=== PATIENT | male | born 1955 | race Caucasian/White ===

== ENCOUNTER 2018-06-30 04:59 | Emergency (ER) | payer OTHER ==
[2018-06-30] MEDS ORDERED: Sodium Chloride 0.9% 10 ML Syringe FLUSH PRN (05:20)
[2018-06-30 06:23] LABS: CHLORIDE,CL 101 mmol/L (98-107); SODIUM,NA 138 mmol/L (136-145)
[2018-06-30 06:24] LABS: ANION GAP 14.2 mmol/L (10-20)
[2018-06-30] MEDS: Insulin Regular, Human 100 Units/ML 3 ML Vial IVPUSH ONE (06:45)
[2018-06-30] MEDS: Heparin Sodium 5,000 Units/ML Vial IVPUSH ONE (06:54)
[2018-06-30] MEDS: Heparin Sodium/0.45% NaCl 25,000 UNITS/500 ML BAG IV SCH (06:54)
--- NOTE | 2018-06-30 06:55 | EDM.PDOC ---
ED HPI GENERAL MEDICAL PROBLEM - General Chief Complaint: Cardiovascular Problem Stated Complaint: Chest Pain Time Seen by Provider: 06/30/18 05:14 Source of Information: Reports: Patient History Limitations: Reports: No Limitations - History of Present Illness INITIAL COMMENTS - FREE TEXT/NARRATIVE: Pt. presents to ER with complaints of substernal chest and anterior neck pain. He states that he has been experiencing intermittent chest pain for some time, particularly if he is outside exerting himself. He states that he has noticed that the discomfort will occasionally resolve if he drinks a warm drink. He states that the pain today is located in his upper chest and radiates into this anterior neck. He states that the radiation into the neck is a new symptom. Denies any fever or chills. No radiation into the back or jaw. He also complains of some paresthesia in his L upper extremity, primarily in the hand. He has had headaches recently as well. Denies any weakness to the arm or hand. He is not currently experiencing any symptoms of extremity paresthesia actively. Denies any involvement of the lower extremities. No facial droop, dysarthria, speech or gait disturbances. He states that he has had "black stools" and does have a history of GERD. Denies any hematemesis. No hematochezia. He states that he is a daily drinker, but typically only has 1-2 drinks. Pt. has a history of CAD with previous [facility]. He has 2 stents. Denies any history of CHF. He states that he has "borderline" diabetes that he manages with exercise and diet. He does not regularly check his blood sugar. He states that his PCP is Dr. Eddie Alvarenga and [facility]. Pt. states that the discomfort woke him from sleep at approx. 0300. Onset: Today Location: Reports: Neck, Chest Quality: Reports: Ache, Pressure Severity: Moderate Treatments PLOW HOLDER: Reports: Nitroglycerin - Related Data Allergies Allergy/AdvReac Type Severity Reaction Status Date / Time dust Allergy Headache Uncoded 06/30/18 05:11 Home Meds: Home Meds Aspirin 81 mg PO BRK 05/20/16 [History] Lisinopril [Prinivil] 5 mg PO DAILY 05/20/16 [History] Metoprolol Tartrate 12.5 mg PO DAILY 05/20/16 [History] Multivitamin [Multivitamins] 1 each PO DAILY 05/20/16 [History] atorvaSTATin [Lipitor] 80 mg PO BEDTIME 05/20/16 [History] cephALEXin [Cephalexin] 500 mg PO TID #30 capsule 05/20/16 [Rx] Past Medical History Cardiovascular History: Reports: Hypertension, [place] Gastrointestinal History: Reports: GERD Endocrine/Metabolic History: Reports: Diabetes, Type II Social & Family History - Tobacco Use Smoking Status *Q: Former Smoker Used Tobacco, but Quit: Yes Month/Year Tobacco Last Used: 1991 - Recreational Drug Use Recreational Drug Use: No ED ROS GENERAL - Review of Systems Review Of Systems: See Below Constitutional: Reports: No Symptoms HEENT: Reports: No Symptoms Respiratory: Reports: No Symptoms Cardiovascular: Reports: Chest Pain Endocrine: Reports: No Symptoms GI/Abdominal: Reports: Other (please see HPI) : Reports: Other (Please see HPI) Musculoskeletal: Reports: Neck Pain Skin: Reports: No Symptoms Neurological: Reports: Paresthesia (L hand) Psychiatric: Reports: No Symptoms Hematologic/Lymphatic: Reports: No Symptoms Immunologic: Reports: No Symptoms ED EXAM, GENERAL - Physical Exam Exam: See Below Exam Limited By: No Limitations General Appearance: Alert, WD/WN, No Apparent Distress Eye Exam: Bilateral Eye: EOMI Nose: Normal Inspection, Normal Mucosa, No Blood Throat/Mouth: Normal Inspection, Normal Lips, Normal Teeth, Normal Gums, Normal Oropharynx, Normal Voice, No Airway Compromise Head: Atraumatic, Normocephalic Neck: Normal Inspection, Supple, Non-Tender, Full Range of Motion Respiratory/Chest: No Respiratory Distress, Lungs Clear, Normal Breath Sounds, No Accessory Muscle Use, Chest Non-Tender Cardiovascular: Normal Peripheral Pulses, Regular Rate, Rhythm, No Edema, No Gallop, No JVD, No Murmur, No Rub Peripheral Pulses: 4+: Radial (L), Radial (R), Posterior Tibial (L), Posterior Tibial (R) GI/Abdominal: Normal Bowel Sounds, Soft, Non-Tender, No Organomegaly, No Distention, No Mass (Male) Exam: Deferred Rectal (Males) Exam: Heme - Stool, Other (FOBT was performed and was negative. ) Back Exam: Normal Inspection, Full Range of Motion Extremities: Normal Inspection, Normal Range of Motion, Non-Tender, No Pedal Edema, Normal Capillary Refill Neurological: Alert, Oriented, CN II-XII Intact, Normal Cognition, Normal Gait, Normal Reflexes, No Motor/Sensory Deficits Psychiatric: Normal Affect, Normal Mood Skin Exam: Warm, Dry, Intact, Normal Color, No Rash Lymphatic: No Adenopathy EKG INTERPRETATION EKG Interpretation Comments: sinus bradycardia with PVCs. No acute ST abnormality. Course - Vital Signs Last Recorded V/S: Last Vital Signs Temp 36.0 C 06/30/18 05:25 Pulse 65 06/30/18 06:30 Resp 16 06/30/18 06:30 BP 111/74 06/30/18 06:30 Pulse Ox 95 06/30/18 06:30 - Orders/Labs/Meds Orders: Active Orders 24 hr Category Date Time Status EKG Documentation Completion [RC] STAT Care 06/30/18 05:19 Active Chest 1V Frontal [CR] Stat Exams 06/30/18 05:21 Taken UA W/MICROSCOPIC [URIN] Stat Lab 06/30/18 06:43 Ordered Heparin Sodium/0.45% NaCl [Heparin 25,000 Units in 1/2 Med 06/30/18 06:45 Ordered NS 500 ML] 25,000 units in 500 ml IV TITRATE Sodium Chloride 0.9% [Saline Flush] Med 06/30/18 05:20 Active 10 ml FLUSH ASDIRECTED PRN Peripheral IV Insertion Adult [OM.PC] Routine Oth 06/30/18 05:21 Ordered Medication Orders Heparin Sodium/Sodium Chloride (Heparin 25,000 Units In 1/2 Ns 500 Ml) 25,000 units in 500 mls @ 20 mls/hr IV TITRATE LIZETH; Protocol Sodium Chloride (Saline Flush) 10 ml FLUSH ASDIRECTED PRN PRN Reason: Keep Vein Open Labs: Laboratory Tests 06/30/18 06/30/18 06/30/18 Range/Units 05:35 05:35 05:35 WBC 8.7 (4.0-10.0) x10^3/uL RBC 5.03 (4.5-6.0) x10^6/uL Hgb 15.8 (14.0-18.0) g/dL Hct 45.4 (40.0-52.0) % MCV 90.3 (78.0-93.0) fL MCH 31.4 (26.0-32.0) pg MCHC 34.8 (32.0-36.0) g/dL RDW Coeff of Nikhil 13.4 (10.0-15.0) % Plt Count 213 (130-400) x10^3/uL Neut % (Auto) 56.5 (50.0-80.0) % Lymph % (Auto) 33.1 (25.0-50.0) % Bibb % (Auto) 8.7 (2.0-11.0) % Eos % (Auto) 1.1 (0.0-4.0) % Baso % (Auto) 0.6 (0.2-1.2) % PT 11.6 H (9.6-11.4) SEC INR 1.1 L (2.0-3.5) Sodium 138 (136-145) mmol/L Potassium 4.2 (3.5-5.1) mmol/L Chloride 101 (98-107) mmol/L Carbon Dioxide 27 (21-32) mmol/L Anion Gap 14.2 (10-20) mmol/L BUN 16 (7-18) mg/dL Creatinine 1.0 (0.70-1.30) mg/dL Est Cr Clr Drug Dosing 77.06 mL/min Estimated GFR (MDRD) > 60 Glucose 348 H (74-106) mg/dL Calcium 9.1 (8.5-10.1) mg/dL Corrected Calcium 9.58 (8.5-10.1) mg/dL Phosphorus 3.5 (2.6-4.7) mg/dL Magnesium 1.8 (1.8-2.4) mg/dL Total Bilirubin 0.8 (0.2-1.0) mg/dL AST 20 (15-37) U/L ALT 55 (16-63) U/L Alkaline Phosphatase 134 H (46-116) U/L POC Troponin I (0.00-0.08) ng/mL C-Reactive Protein 0.4 (<=0.9) mg/dL NT-Pro-B Natriuret Pep 89 (<=125) pg/mL Total Protein 7.7 (6.4-8.2) g/dL Albumin 3.4 (3.4-5.0) g/dL Globulin 4.3 Albumin/Globulin Ratio 0.79 TSH, Ultra Sensitive 1.961 (0.358-3.74) uIU/mL 06/30/18 Range/Units 05:42 WBC (4.0-10.0) x10^3/uL RBC (4.5-6.0) x10^6/uL Hgb (14.0-18.0) g/dL Hct (40.0-52.0) % MCV (78.0-93.0) fL MCH (26.0-32.0) pg MCHC (32.0-36.0) g/dL RDW Coeff of Nikhil (10.0-15.0) % Plt Count (130-400) x10^3/uL Neut % (Auto) (50.0-80.0) % Lymph % (Auto) (25.0-50.0) % Bibb % (Auto) (2.0-11.0) % Eos % (Auto) (0.0-4.0) % Baso % (Auto) (0.2-1.2) % PT (9.6-11.4) SEC INR (2.0-3.5) Sodium (136-145) mmol/L Potassium (3.5-5.1) mmol/L Chloride (98-107) mmol/L Carbon Dioxide (21-32) mmol/L Anion Gap (10-20) mmol/L BUN (7-18) mg/dL Creatinine (0.70-1.30) mg/dL Est Cr Clr Drug Dosing mL/min Estimated GFR (MDRD) Glucose (74-106) mg/dL Calcium (8.5-10.1) mg/dL Corrected Calcium (8.5-10.1) mg/dL Phosphorus (2.6-4.7) mg/dL Magnesium (1.8-2.4) mg/dL Total Bilirubin (0.2-1.0) mg/dL AST (15-37) U/L ALT (16-63) U/L Alkaline Phosphatase (46-116) U/L POC Troponin I 0.00 (0.00-0.08) ng/mL C-Reactive Protein (<=0.9) mg/dL NT-Pro-B Natriuret Pep (<=125) pg/mL Total Protein (6.4-8.2) g/dL Albumin (3.4-5.0) g/dL Globulin Albumin/Globulin Ratio TSH, Ultra Sensitive (0.358-3.74) uIU/mL Meds: Medications Generic Name Dose Route Start Last Admin Trade Name Freq PRN Reason Stop Dose Admin Heparin Sodium/Sodium Chloride 25,000 units in 500 mls @ 20 mls/hr 06/30/18 06 :45 Heparin 25,000 Units In 1/2 Ns 500 Ml IV TITRATE LIZETH Protocol 1,000 UNITS/HR Sodium Chloride 10 ml 06/30/18 05:20 Saline Flush FLUSH ASDIRECTED PRN Keep Vein Open Discontinued Medications Generic Name Dose Route Start Last Admin Trade Name Freq PRN Reason Stop Dose Admin Heparin Sodium (Porcine) 4,000 units 06/30/18 06:42 Heparin Sodium IVPUSH 06/30/18 06:43 .BOLUS ONE Insulin Human Regular 10 unit 06/30/18 06:37 Humulin R IVPUSH 06/30/18 06:38 ONETIME ONE - Radiology Interpretation Free Text/Narrative:: Chest x-ray is negative Departure - Departure Time of Disposition: 07:10 Disposition: DC/Tfer to [facility] 02 Reason for Transfer *Q: Other Clinical Impression: Chest pain, Hyperglycemia Referrals: Vinicio Avila MD [Primary Care Provider] - Forms: ED Department Discharge, Interfacility Transfer EMTALA - Problem List Review Problem List Initiated/Reviewed/Updated: Yes - My Orders Last 24 Hours: My Active Orders 06/30/18 05:19 EKG Documentation Completion [RC] STAT 06/30/18 05:20 Sodium Chloride 0.9% [Saline Flush] 10 ml FLUSH ASDIRECTED PRN 06/30/18 05:21 Chest 1V Frontal [CR] Stat Peripheral IV Insertion Adult [OM.PC] Routine 06/30/18 06:43 UA W/MICROSCOPIC [URIN] Stat 06/30/18 06:45 Heparin Sodium/0.45% NaCl [Heparin 25,000 Units in 1/2 NS 500 ML] 25,000 units in 500 ml IV TITRATE - Assessment/Plan Last 24 Hours: My Active Orders 06/30/18 05:19 EKG Documentation Completion [RC] STAT 06/30/18 05:20 Sodium Chloride 0.9% [Saline Flush] 10 ml FLUSH ASDIRECTED PRN 06/30/18 05:21 Chest 1V Frontal [CR] Stat Peripheral IV Insertion Adult [OM.PC] Routine 06/30/18 06:43 UA W/MICROSCOPIC [URIN] Stat 06/30/18 06:45 Heparin Sodium/0.45% NaCl [Heparin 25,000 Units in 1/2 NS 500 ML] 25,000 units in 500 ml IV TITRATE Plan: Pt. will be transferred to [facility] in [place]. Dr. Elder is accepting. He was given regular insulin 10 u IV. He was given 4000U heparin bolus. He was started on an insulin drip at 1000U/hr drip. His stool FOBT was negative. He will be transported by [facility] ground ambulance.
[2018-06-30] MEDS ORDERED: Nitroglycerin 0.4 MG Tab.SL SL ONE (07:51)
--- NOTE | 2018-06-30 08:10 | CR ---
[id number] RAD/RAD Chest PA or AP 1V EXAM: SINGLE VIEW CHEST. INDICATION: CHEST PAIN COMPARISON: CORRELATION IS MADE WITH THE EXAM OF OCTOBER 10, 2013. FINDINGS: The lungs are clear. The cardiomediastinal contour is prominent but stable. IMPRESSION: STABLE CHEST. Simone Gomez MD 06/30/18 0809 Thank you for allowing us to participate in the care of your patient.
[2018-06-30 08:13] VITALS: BP 126/75
== END 2018-06-30 10:50 | disposition short-term general hospital (02) ==
LOC: VM.ED 04:59
DX: K21.9 Gastro-esophageal reflux disease without esophagitis (principal); E11.65 Type 2 diabetes mellitus with hyperglycemia; I10 Essential (primary) hypertension; I25.2 Old myocardial infarction; Z79.82 Long term (current) use of aspirin; Z79.899 Other long term (current) drug therapy; Z87.891 Personal history of nicotine dependence
CPT/HCPCS: 71045; 80053; 81001; 82962; 83735; 83880; 84100; 84443; 84484; 85025; 85610; 86140; 93005; 93010; 96365; 96366; 96375; 99284-GF; 99285-25; J1644; J1815-GY

== ENCOUNTER 2019-12-16 10:17 | Emergency (ER) | payer MEDICARE, BC ==
--- NOTE | 2019-12-16 10:38 | EDM.PDOC ---
ED HPI GENERAL MEDICAL PROBLEM - General Stated Complaint: RIght wrist injury Time Seen by Provider: 12/16/19 10:30 Source of Information: Reports: Patient History Limitations: Reports: No Limitations - History of Present Illness INITIAL COMMENTS - FREE TEXT/NARRATIVE: Patient comes emergency department today with an injury to his right wrist. Just prior to arrival the patient was working with a strap on the strap broke his arm released and he struck his wrist on the piece of the vehicle. Shortly thereafter he really noticed that he had quite a bit of swelling that look like a bruise on the dorsal aspect of the right wrist. He denies any pain paresthesias change in function. He is on Brilinta antiplatelet therapy. He has had no other causes of bleeding. - Related Data Allergies Allergy/AdvReac Type Severity Reaction Status Date / Time dust Allergy Headache Uncoded 12/16/19 10:38 Home Meds: Home Meds Aspirin 81 mg PO BRK 05/20/16 [History] Multivitamin [Multivitamins] 1 each PO DAILY 05/20/16 [History] atorvaSTATin [Lipitor] 80 mg PO BEDTIME 05/20/16 [History] Nitroglycerin [Nitrostat] 0.4 mg PO ASDIRECTED PRN 09/01/18 [History] Metoprolol Succinate [Toprol XL] 25 mg PO DAILY 12/16/19 [History] Sildenafil [Viagra] 50 mg PO BEDTIME PRN 12/16/19 [History] Ticagrelor [Brilinta] 60 mg PO BID 12/16/19 [History] lisinopriL [Lisinopril] 2.5 mg PO DAILY 12/16/19 [History] metFORMIN HCl [Metformin HCl ER] 750 mg PO DAILY 12/16/19 [History] Past Medical History Cardiovascular History: Reports: Hypertension, [place] Gastrointestinal History: Reports: GERD Endocrine/Metabolic History: Reports: Diabetes, Type II Review of Systems - Review of Systems Review Of Systems: Comprehensive ROS is negative, except as noted in HPI. ED EXAM, GENERAL - Physical Exam Exam: See Below Exam Limited By: No Limitations General Appearance: Alert, WD/WN Respiratory/Chest: No Respiratory Distress Cardiovascular: Normal Peripheral Pulses Peripheral Pulses: 2+: Brachial (L), Brachial (R), Radial (L), Radial (R) Extremities: No: Normal Inspection (Examination of the dorsal left distal wrist right at the wrist joint there is about a 3 cm circular hematoma with no breaks in the skin. Is able to flex and extend and rotate at the wrist appropriately. CMS is intact appropriately to the hand he is able to move at all the joints of the fingers as well. The rest of the right upper extremity is unremarkable.) Course - Vital Signs Last Recorded V/S: Last Vital Signs Temp 97.3 F 12/16/19 10:20 Pulse 64 12/16/19 10:20 Resp 16 12/16/19 10:20 BP 120/84 12/16/19 10:20 Pulse Ox 97 12/16/19 10:20 - Orders/Labs/Meds Orders: Active Orders 24 hr Category Date Time Status Wrist Comp Min 3V Rt [CR] Stat Exams 12/16/19 10:32 Taken - Radiology Interpretation Free Text/Narrative:: Xray of the wrist per radiology no acute fracture. - Re-Assessments/Exams Free Text/Narrative Re-Assessment/Exam: 12/16/19 12:12 The area on the wrist is a hematoma from the trauma. It has not expanded while he has been in the ED. No fracture on the xray. Symptomatic management at this time. He is comfortable with this discharge plan and his questions answered. Departure - Departure Time of Disposition: 11:07 Disposition: Home, Self-Care 01 Clinical Impression: Antiplatelet or antithrombotic long-term use Traumatic hematoma of right wrist Qualifiers: Encounter type: initial encounter Qualified Code(s): S60.211A - Contusion of right wrist, initial encounter - Discharge Information Instructions: Pain Medicine Instructions, [id number], How to Use Cold Therapy Additional Instructions: Tylenol as needed for pain. Keep the compression on for most of the day. Ice to the sore areas as well. If the hematoma starts to expand rapidly apply direct pressure and recheck. Return to the ED if new or worsening symptoms. Follow up with PCP if any concerns or problems. Sepsis Event Note (ED) - Focused Exam Vital Signs: Vital Signs Temp Pulse Resp BP Pulse Ox 12/16/19 10:20 97.3 F 64 16 120/84 97 - My Orders Last 24 Hours: My Active Orders 12/16/19 10:32 Wrist Comp Min 3V Rt [CR] Stat - Assessment/Plan Last 24 Hours: My Active Orders 12/16/19 10:32 Wrist Comp Min 3V Rt [CR] Stat
[2019-12-16 10:43] VITALS: BP 120/84; PULSE 64
--- NOTE | 2019-12-16 11:18 | CR ---
[id number] RAD/RAD Wrist Right 3V Min EXAM: RAD Wrist Right 3V Min CLINICAL DATA: TRAUMA COMPARISON: NO PREVIOUS SIMILAR EXAM IS AVAILABLE. FINDINGS: No fracture or dislocation is seen. There is no radiopaque foreign body in the soft tissues. There is no air in the soft tissues. There is no cortical thickening or periosteal reaction either. IMPRESSION: NEGATIVE PLAIN FILM EXAM. Simone Gomez MD 12/16/19 [id number] Thank you for allowing us to participate in the care of your patient.
== END 2019-12-16 11:22 | disposition home or self-care (01) ==
LOC: VM.ED 10:17
DX: S60.211A Contusion of right wrist, initial encounter (principal); I10 Essential (primary) hypertension; I25.2 Old myocardial infarction; E11.9 Type 2 diabetes mellitus without complications; Z79.84 Long term (current) use of oral hypoglycemic drugs; Z79.02 Long term (current) use of antithrombotics/antiplatelets; Z91.09 Other allergy status, other than to drugs and biological substances; Z79.82 Long term (current) use of aspirin; Z79.899 Other long term (current) drug therapy; W22.8XXA Striking against or struck by other objects, initial encounter
CPT/HCPCS: 73110-RT; 99283

== ENCOUNTER 2020-02-15 08:29 | Emergency (ER) | payer MEDICARE, BC ==
[2020-02-15] MEDS ORDERED: Take Home: Albuterol 18 GM Inhaler, 1 Inhaler Pack INH STA (08:59)
--- NOTE | 2020-02-15 09:06 | EDM.PDOC ---
ED HPI GENERAL MEDICAL PROBLEM - General Chief Complaint: Respiratory Problem Stated Complaint: COVID SYMPTOMS Time Seen by Provider: 02/15/20 08:43 Source of Information: Reports: Patient - History of Present Illness INITIAL COMMENTS - FREE TEXT/NARRATIVE: is a 64 y/o male who comes to the ER with SOB. He started to have COVID sx on 02/04 and then was tested on 02/07. He received +COVID result on 02/09. He has been at home on quarantine since 02/04. His cough and SOB have gotten worse over the last 2-3 days. He cannot sleep because the cough is so persistent. He has used Mucinex and it has not given him much relief. The cough is dry and hacky. He has not been eating much due to nausea, but he has been able to drink pop although not much water. Denies fever. He has several family members who are at home in quarantine. - Related Data Allergies Allergy/AdvReac Type Severity Reaction Status Date / Time dust Allergy Headache Uncoded 02/15/20 08:53 Home Meds: Home Meds Aspirin 81 mg PO BRK 05/20/16 [History] Multivitamin [Multivitamins] 1 each PO DAILY 05/20/16 [History] atorvaSTATin [Lipitor] 80 mg PO BEDTIME 05/20/16 [History] Nitroglycerin [Nitrostat] 0.4 mg PO ASDIRECTED PRN 09/01/18 [History] Metoprolol Succinate [Toprol XL] 25 mg PO DAILY 12/16/19 [History] Sildenafil [Viagra] 50 mg PO BEDTIME PRN 12/16/19 [History] Ticagrelor [Brilinta] 60 mg PO BID 12/16/19 [History] lisinopriL [Lisinopril] 2.5 mg PO DAILY 12/16/19 [History] metFORMIN HCl [Metformin HCl ER] 750 mg PO DAILY 12/16/19 [History] Albuterol Sulfate [Albuterol Sulfate Hfa] 4 inh IH Q4H #18 hfa.aer.ad 02/15/20 [Rx] Azithromycin 250 mg PO DAILY #6 tablet 02/15/20 [Rx] Past Medical History Cardiovascular History: Reports: Hypertension, [place] Gastrointestinal History: Reports: GERD Endocrine/Metabolic History: Reports: Diabetes, Type II Social & Family History - Tobacco Use Tobacco Use Status *Q: Unknown Ever Used Tobacco ED ROS GENERAL - Review of Systems Review Of Systems: See Below Constitutional: Reports: Weakness, Fatigue, Decreased Appetite HEENT: Reports: No Symptoms Respiratory: Reports: Shortness of Breath, Cough Cardiovascular: Reports: No Symptoms Endocrine: Reports: Polyuria GI/Abdominal: Reports: Nausea : Reports: No Symptoms Musculoskeletal: Reports: Other (Body Aches) Skin: Reports: No Symptoms Neurological: Reports: No Symptoms Psychiatric: Reports: No Symptoms Hematologic/Lymphatic: Reports: No Symptoms Immunologic: Reports: No Symptoms ED EXAM, GENERAL - Physical Exam Exam: See Below General Appearance: Alert, WD/WN, No Apparent Distress (Adult male.) Eye Exam: Bilateral Eye: PERRL Ears: Normal External Exam, Normal Canal, Hearing Grossly Normal, Normal TMs Nose: Normal Inspection, Normal Mucosa Throat/Mouth: Normal Inspection, Normal Lips, Normal Teeth, Normal Voice Head: Atraumatic, Normocephalic Neck: Normal Inspection, Supple, Non-Tender Respiratory/Chest: No Respiratory Distress, Decreased Breath Sounds, Other (Jeet hacky cough) Cardiovascular: Regular Rate, Rhythm GI/Abdominal: Normal Bowel Sounds, No Mass (Male) Exam: Deferred Rectal (Males) Exam: Deferred Back Exam: Normal Inspection Extremities: Normal Inspection, No Pedal Edema, Normal Capillary Refill Neurological: Alert, Oriented, CN II-XII Intact Psychiatric: Normal Affect Skin Exam: Warm, Normal Color Lymphatic: No Adenopathy #1 Interpretation EKG Date: 02/15/20 Time: 09:12 Rhythm: NSR Rate (Beats/Min): 81 [place]: Normal P-Wave: Present QRS: LBBB (Lead 2) ST-T: Normal QT: Normal Comparison: Change From Previous EKG EKG Interpretation Comments: Note new LBBB Partial on Lead 2 Course - Vital Signs Text/Narrative:: 0854 The patient was seen by the LEARNING SERVICES COORDINATOR. Labs, CXR, and EKG ordered. He was given Albuterol MDI 4 puffs x 1 for the cough. 1030 Patient feeling better after the Albuterol. Labs reviewed. Note D Dimer 0.59, Troponin=0.017. Bands=12, AST=45, ALT=97. Will obtain CTA due to elevated D Dimer and COVID+. Note pneumonia appearance to the CXR, considering Bands elevated will treat with Ceftriaxone 1gm IVP and then start oral Azithromycin to cover for CAP. 1235 Reviewed CTA results, discussed with patient. Will send him home with Azithromycin despite viral presentation on images. He was given discharge instructions and left the ER in stable condition. Last Recorded V/S: Last Vital Signs Temp 36.7 C 02/15/20 08:35 Pulse 81 02/15/20 08:35 Resp 20 02/15/20 08:35 BP 151/81 H 02/15/20 08:35 Pulse Ox 96 02/15/20 08:35 - Orders/Labs/Meds Orders: Active Orders 24 hr Category Date Time Status EKG Documentation Completion [RC] STAT Care 02/15/20 08:55 Active Labs: Laboratory Tests 02/15/20 02/15/20 02/15/20 Range/Units 09:10 09:10 09:10 WBC 5.8 (4.0-10.0) x10^3/uL RBC 4.87 (4.5-6.0) x10^6/uL Hgb 15.3 (14.0-18.0) g/dL Hct 43.1 (40.0-52.0) % MCV 88.5 (78.0-93.0) fL MCH 31.4 (26.0-32.0) pg MCHC 35.5 (32.0-36.0) g/dL RDW Coeff of Nikhil 13.4 (10.0-15.0) % Plt Count 164 (130-400) x10^3/uL Add Manual Diff Yes Neutrophils % (Manual) 58 (50-80) % Band Neutrophils % 12 H (0-6) % Lymphocytes % (Manual) 13 L (25-50) % Reactive Lymphs % 5 H (0) % Monocytes % (Manual) 11 (2-11) % Metamyelocytes % 1 H (0) % Vacuolated Monocytes Few Toxic Granulation 1+ slight H Platelet Estimate Adequate PT (9.5-12.3) SEC INR (2.0-3.5) APTT (25.6-32.8) SEC D-Dimer, Quantitative 0.59 H (<=0.58) mg/LFEU Sodium 136 (136-145) mmol/L Potassium 3.7 (3.5-5.1) mmol/L Chloride 99 (98-107) mmol/L Carbon Dioxide 28 (21-32) mmol/L Anion Gap 12.7 (10-20) mmol/L BUN 15 (7-18) mg/dL Creatinine 0.9 (0.70-1.30) mg/dL Est Cr Clr Drug Dosing TNP Estimated GFR (MDRD) > 60 Glucose 215 H (74-106) mg/dL Calcium 9.2 (8.5-10.1) mg/dL Corrected Calcium 9.60 (8.5-10.1) mg/dL Total Bilirubin 1.1 H (0.2-1.0) mg/dL AST 45 H (15-37) U/L ALT 97 H (16-63) U/L Alkaline Phosphatase 135 H (46-116) U/L Troponin I < 0.017 (<=0.056) ng/mL Total Protein 7.7 (6.4-8.2) g/dL Albumin 3.5 (3.4-5.0) g/dL Globulin 4.2 Albumin/Globulin Ratio 0.83 Urine Color (YELLOW) Urine Appearance (CLEAR) Urine pH (5.0-8.0) Ur Specific [place] Urine Protein (NEGATIVE) mg/dL Urine Glucose (UA) (NEGATIVE) mg/dL Urine Ketones (NEGATIVE) mg/dL Urine Occult Blood (NEGATIVE) Urine Nitrite (NEGATIVE) Urine Bilirubin (NEGATIVE) Urine Urobilinogen (0.2) EU/dL Ur Leukocyte Esterase (NEGATIVE) U Hyaline Cast (Auto) Urine RBC (NOT SEEN) /HPF Urine WBC (NOT SEEN) /HPF Ur Squamous Epith Cells (NEGATIVE) /HPF Urine Bacteria (NEGATIVE) /HPF Urine Mucus (NEGATIVE) /LPF 02/15/20 02/15/20 02/15/20 Range/Units 09:10 09:10 09:38 WBC (4.0-10.0) x10^3/uL RBC (4.5-6.0) x10^6/uL Hgb (14.0-18.0) g/dL Hct (40.0-52.0) % MCV (78.0-93.0) fL MCH (26.0-32.0) pg MCHC (32.0-36.0) g/dL RDW Coeff of Nikhil (10.0-15.0) % Plt Count (130-400) x10^3/uL Add Manual Diff Neutrophils % (Manual) (50-80) % Band Neutrophils % (0-6) % Lymphocytes % (Manual) (25-50) % Reactive Lymphs % (0) % Monocytes % (Manual) (2-11) % Metamyelocytes % (0) % Vacuolated Monocytes Toxic Granulation Platelet Estimate PT 11.6 (9.5-12.3) SEC INR 1.1 L (2.0-3.5) APTT 25.2 L (25.6-32.8) SEC D-Dimer, Quantitative (<=0.58) mg/LFEU Sodium (136-145) mmol/L Potassium (3.5-5.1) mmol/L Chloride (98-107) mmol/L Carbon Dioxide (21-32) mmol/L Anion Gap (10-20) mmol/L BUN (7-18) mg/dL Creatinine (0.70-1.30) mg/dL Est Cr Clr Drug Dosing Estimated GFR (MDRD) Glucose (74-106) mg/dL Calcium (8.5-10.1) mg/dL Corrected Calcium (8.5-10.1) mg/dL Total Bilirubin (0.2-1.0) mg/dL AST (15-37) U/L ALT (16-63) U/L Alkaline Phosphatase (46-116) U/L Troponin I (<=0.056) ng/mL Total Protein (6.4-8.2) g/dL Albumin (3.4-5.0) g/dL Globulin Albumin/Globulin Ratio Urine Color Dark yellow H (YELLOW) Urine Appearance Clear (CLEAR) Urine pH 6.0 (5.0-8.0) Ur Specific [place] >=1.030 Urine Protein 100 H (NEGATIVE) mg/dL Urine Glucose (UA) 250 H (NEGATIVE) mg/dL Urine Ketones Trace H (NEGATIVE) mg/dL Urine Occult Blood Negative (NEGATIVE) Urine Nitrite Negative (NEGATIVE) Urine Bilirubin Small H (NEGATIVE) Urine Urobilinogen 0.2 (0.2) EU/dL Ur Leukocyte Esterase Negative (NEGATIVE) U Hyaline Cast (Auto) Few Urine RBC 0-5 (NOT SEEN) /HPF Urine WBC 0-5 (NOT SEEN) /HPF Ur Squamous Epith Cells Few H (NEGATIVE) /HPF Urine Bacteria Not seen (NEGATIVE) /HPF Urine Mucus Many H (NEGATIVE) /LPF Meds: Medications Discontinued Medications Generic Name Dose Route Start Last Admin Trade Name Laisha PRN Reason Stop Dose Admin Albuterol 4 packet 02/15/20 08:59 02/15/20 09:14 Take Home: Albuterol 18 Gm, 1 Inh Pack INH 02/15/20 09:00 4 puff NOW STA Administration Ceftriaxone Sodium 1 gm 02/15/20 10:36 02/15/20 10:50 Rocephin IVPUSH 02/15/20 10:37 1 gm STAT ONE Administration Sodium Chloride 1,000 mls @ 999 mls/hr 02/15/20 10:36 02/15/20 10:50 Normal Saline IV 02/15/20 11:36 999 mls/hr ONETIME ONE Administration Iopamidol 100 ml 02/15/20 10:45 02/15/20 11:22 Isovue-300 (61%) IVPUSH 02/15/20 10:46 100 ml ONETIME ONE Administration - Radiology Interpretation Free Text/Narrative:: XR Chest 1V=note pneumonia and COVID 19 patchy opacities in the RLL and LLL CT Results Date: 02/15/20 CT Results Time: 12:13 - Re-Assessments/Exams Free Text/Narrative Re-Assessment/Exam: 02/15/20 12:37 CTA Chest=no pulmonary emboli, viral pneumonia Departure - Departure Time of Disposition: 12:39 Disposition: DC/Tfer to Medicaid Nur [facility] Condition: Good Clinical Impression: COVID-19 Pneumonia Qualifiers: Aspiration pneumonia type: unspecified Laterality: bilateral Lung location: unspecified part of lung - Discharge Information Prescriptions: Albuterol Sulfate [Albuterol Sulfate Hfa] 4 inh IH Q4H #18 hfa.aer.ad Azithromycin 250 mg PO DAILY #6 tablet Instructions: Shortness of Breath, Adult, [id number], COVID-19: How to Protect Yourself and Others - CDC Forms: ED Department Discharge Sepsis Event Note (ED) - Evaluation Sepsis Screening Result: No Definite Risk - Focused Exam Vital Signs: Vital Signs Temp Pulse Resp BP Pulse Ox 02/15/20 08:35 36.7 C 81 20 151/81 H 96 - My Orders Last 24 Hours: My Active Orders 02/15/20 08:55 EKG Documentation Completion [RC] STAT - Assessment/Plan Last 24 Hours: My Active Orders 02/15/20 08:55 EKG Documentation Completion [RC] STAT Assessment:: 1)COVID 19 2)Pneumonia, Probable Viral -Azithromycin prescription as directed -Albuterol inhaler use 2-4 puffs very 4 hours as needed for cough -Stay well hydrated -Rest -Follow up with your PCP at the [facility] if you have nay further concerns or return to the ER if you have any other concerns
[2020-02-15 09:45] LABS: ANION GAP 12.7 mmol/L (10-20); CHLORIDE,CL 99 mmol/L (98-107); SODIUM,NA 136 mmol/L (136-145)
--- NOTE | 2020-02-15 09:53 | CR ---
[id number] RAD/RAD Chest PA or AP 1V EXAM: RAD Chest PA or AP 1V INDICATION: POSITIVE COVID, SHORTNESS OF BREATH. COMPARISON: June 30, 2018. DISCUSSION: Cardiomediastinal silhouette is normal in size and contour. Subtle areas of patchy and somewhat linear appearing mid and lower lung parenchymal opacities bilaterally. Findings are most consistent with pneumonia, including sequela of Covid 19. No pleural effusion or pneumothorax. IMPRESSION: As above. Sergei Olguin MD 02/15/20 0951 Thank you for allowing us to participate in the care of your patient.
[2020-02-15] MEDS ORDERED: cefTRIAXone 1 GM Vial IVPUSH ONE (10:36)
[2020-02-15] MEDS ORDERED: Sodium Chloride 0.9% 1,000 ML IV ONE (10:36)
[2020-02-15] MEDS ORDERED: Iopamidol 612 MG/ML 100 ML Bottle IVPUSH ONE (10:45)
--- NOTE | 2020-02-15 12:17 | CT ---
[id number] CT/CTA Chest Exam: CTA Chest Clinical Data: VIRAL PNEUMONIA POSITIVE D-DIMER COMPARISON: CORRELATION IS MADE WITH TODAY'S CHEST RADIOGRAPH FINDINGS: Mild bilateral pulmonary parenchymal peripheral groundglass opacities are seen There is mild mediastinal adenopathy There are no pulmonary emboli IMPRESSION: VIRAL PNEUMONIA NO PULMONARY EMBOLI Simone Gomez MD 02/15/20 [id number] Thank you for allowing us to participate in the care of your patient.
[2020-02-15 13:16] VITALS: BP 138/88; PULSE 88
== END 2020-02-15 12:54 | disposition home or self-care (01) ==
LOC: VM.ED 08:29
DX: U07.1 COVID-19 (principal); J12.89 Other viral pneumonia; I10 Essential (primary) hypertension; I25.2 Old myocardial infarction; K21.9 Gastro-esophageal reflux disease without esophagitis; E11.9 Type 2 diabetes mellitus without complications; Z91.048 Other nonmedicinal substance allergy status; Z79.82 Long term (current) use of aspirin; Z79.899 Other long term (current) drug therapy; Z79.84 Long term (current) use of oral hypoglycemic drugs
CPT/HCPCS: 36415; 71045; 71275; 80053; 81001; 84484; 85025; 85379; 85610; 85730; 93005; 93010; 96374; 99284; 99285-25; A9270-GY; J0696; J7030; Q9967

== ENCOUNTER 2022-04-05 16:22 | Emergency (ER) | payer MEDICARE, BC ==
[2022-04-05] MEDS ORDERED: Ciprofloxacin 500 MG Tab PO ONE (18:13)
[2022-04-05] MEDS ORDERED: Take Home: Ciprofloxacin 500 MG Tab, 2 Tab Pack PO ONE (18:14)
[2022-04-05] MEDS ORDERED: Phenazopyridine 95 MG Tab PO SCH (18:15)
[2022-04-05 19:03] VITALS: BP 152/74; PULSE 68
== END 2022-04-05 18:30 | disposition home or self-care (01) ==
LOC: VM.ED 16:22
DX: N39.0 Urinary tract infection, site not specified (principal); I10 Essential (primary) hypertension; E11.9 Type 2 diabetes mellitus without complications; I25.2 Old myocardial infarction; Z79.82 Long term (current) use of aspirin; Z91.048 Other nonmedicinal substance allergy status; Z79.84 Long term (current) use of oral hypoglycemic drugs
CPT/HCPCS: 81001; 87086; 87088; 87186; 99283; A9270; 99284

== ENCOUNTER 2024-02-26 12:38 | Emergency (ER) | payer MEDICARE, BC ==
[2024-02-26] MEDS: Aspirin 81 MG Tab.Chew PO ONE (12:43)
[2024-02-26] MEDS ORDERED: Sodium Chloride 0.9% 10 ML Syringe FLUSH PRN (12:44)
[2024-02-26 12:55] LABS: BASOPHILS PERCENT AUTO 0.4 % (0.2-1.2); EOSINOPHILS ABSOLUTE AUTO 0.1 x10^3/uL (0.0-0.5); EOSINOPHILS PERCENT AUTO 1.6 % (0.0-4.0); HEMATOCRIT 43.9 % (40.0-52.0); HEMOGLOBIN 15.4 g/dL (14.0-18.0); IMMATURE GRAN ABSOLUTE AUTO 0.03 x10^3/uL (0.00-0.07); LYMPHOCYTES ABSOLUTE AUTO 2.4 x10^3/uL (1.0-4.8); MEAN CORPUSCULAR HGB CONC 35.1 g/dL (32.0-36.0); MEAN CORPUSCULAR VOLUME 91.1 fL (78.0-93.0); MONOCYTES ABSOLUTE AUTO 0.6 x10^3/uL (0.0-0.8); MONOCYTES PERCENT AUTO 7.4 % (2.0-11.0); NEUTROPHILS ABSOLUTE AUTO 5.1 x10^3/uL (1.8-7.7); NEUTROPHILS PERCENT AUTO 61.2 % (50.0-80.0); PLATELET COUNT,PLT 227 x10^3/uL (130-400); RED BLOOD CELL COUNT 4.82 x10^6/uL (4.5-6.0); WHITE BLOOD CELL COUNT,WBC 8.4 x10^3/uL (4.0-10.0)
[2024-02-26 13:14] LABS: INR 1.2 (0.9-1.1); PROTHROMBIN TIME 12.1 SEC (8.9-11.5); PTT,PARTIAL THROMBOPLSTIN TIME 25.6 SEC (21.9-33.8)
[2024-02-26] MEDS: Nitroglycerin 0.4 MG Tab.SL SL ONE (13:18)
[2024-02-26] MEDS: Ondansetron 4 MG/2 ML SDV IVPUSH ONE (13:22)
[2024-02-26] MEDS: Heparin Sodium 5,000 Units/ML Vial IVPUSH ONE (13:23)
[2024-02-26] MEDS: Heparin Sodium/0.45% NaCl 25,000 UNITS/500 ML BAG IV SCH (13:24)
[2024-02-26 13:27] LABS: A/G RATIO 0.95; ALANINE AMINOTRANSFERASE,ALT 55 U/L (16-63); ALBUMIN 3.7 g/dL (3.4-5.0); ALKALINE PHOSPHATASE 105 U/L (46-116); ASPARTATE AMNIOTRANSFERASE,AST 25 U/L (15-37); BILIRUBIN TOTAL 1.1 mg/dL (0.2-1.0); BLOOD UREA NITROGEN,BUN 21 mg/dL (7-18); CALCIUM 9.5 mg/dL (8.5-10.1); CARBON DIOXIDE,CO2 27 mmol/L (21-32); CHLORIDE,CL 105 mmol/L (98-107); CREATININE 0.9 mg/dL (0.70-1.30); GLUCOSE RANDOM 151 mg/dL (70-99); MAGNESIUM 1.8 mg/dL (1.8-2.4); PROTEIN TOTAL,TP 7.6 g/dL (6.4-8.2); SODIUM,NA 143 mmol/L (136-145); TSH ULTRASENSITIVE 2.043 uIU/mL (0.358-3.74)
[2024-02-26 13:29] LABS: ESTIMATED GFR 92 mL/min (>=60)
[2024-02-26 13:30] LABS: C-REACTIVE PROTEIN < 3.00 mg/dL (<=0.50); EST CRCL DRUG DOSING (CG) < 0.2 mL/min
[2024-02-26] MEDS ORDERED: Nitroglycerin/D5W 25 MG/250 ML BOTTLE IV SCH (13:30)
[2024-02-26] MEDS ORDERED: fentaNYL 50 MCG/ML SDV ONE (13:35)
[2024-02-26] MEDS: fentaNYL 50 MCG/ML SDV IVPUSH ONE ×2 (13:41)
[2024-02-26 14:18] VITALS: BP 130/69; PULSE 61
== END 2024-02-26 13:45 | disposition short-term general hospital (02) ==
LOC: VM.ED 12:38
DX: I21.19 ST elevation (STEMI) myocardial infarction involving other coronary artery of inferior wall (principal); I24.9 Acute ischemic heart disease, unspecified; I25.10 Atherosclerotic heart disease of native coronary artery without angina pectoris; I25.2 Old myocardial infarction; I10 Essential (primary) hypertension; E78.00 Pure hypercholesterolemia, unspecified; E11.9 Type 2 diabetes mellitus without complications; Z95.5 Presence of coronary angioplasty implant and graft; Z91.048 Other nonmedicinal substance allergy status; Z79.82 Long term (current) use of aspirin; Z79.84 Long term (current) use of oral hypoglycemic drugs; Z79.899 Other long term (current) drug therapy
CPT/HCPCS: 36415; 71045; 80053; 83735; 84443; 84484; 85025; 85610; 85730; 86140; 93005; 96365; 96375; 99285-25; A9270-GY; J1644; J2405; J3010

== ENCOUNTER 2024-05-16 23:33 | Emergency (ER) | payer MEDICARE, BC ==
[~2024-05-16 23:33] MED LIST: Sodium Chloride 0.9% 10 ML Syringe FLUSH PRN
[2024-05-16 23:43] LABS: BASOPHILS PERCENT AUTO 0.4 % (0.2-1.2); EOSINOPHILS ABSOLUTE AUTO 0.4 x10^3/uL (0.0-0.5); EOSINOPHILS PERCENT AUTO 4.9 % (0.0-4.0); HEMATOCRIT 37.1 % (40.0-52.0); HEMOGLOBIN 12.7 g/dL (14.0-18.0); IMMATURE GRAN ABSOLUTE AUTO 0.03 x10^3/uL (0.00-0.07); LYMPHOCYTES ABSOLUTE AUTO 2.7 x10^3/uL (1.0-4.8); LYMPHOCYTES PERCENT AUTO 34.4 % (25.0-50.0); MEAN CORPUSCULAR HEMOGLOBIN 31.8 pg (26.0-32.0); MEAN CORPUSCULAR HGB CONC 34.2 g/dL (32.0-36.0); MONOCYTES ABSOLUTE AUTO 0.8 x10^3/uL (0.0-0.8); NEUTROPHILS ABSOLUTE AUTO 3.9 x10^3/uL (1.8-7.7); NEUTROPHILS PERCENT AUTO 49.9 % (50.0-80.0); PLATELET COUNT,PLT 209 x10^3/uL (130-400); RED BLOOD CELL COUNT 3.99 x10^6/uL (4.5-6.0); WHITE BLOOD CELL COUNT,WBC 7.7 x10^3/uL (4.0-10.0)
[2024-05-16] MEDS: Aspirin 81 MG Tab.Chew PO ONE (23:45)
[2024-05-17 00:07] LABS: A/G RATIO 0.87; ALANINE AMINOTRANSFERASE,ALT 26 U/L (16-63); ALBUMIN 3.3 g/dL (3.4-5.0); ALKALINE PHOSPHATASE 119 U/L (46-116); ASPARTATE AMNIOTRANSFERASE,AST 16 U/L (15-37); BILIRUBIN TOTAL 0.6 mg/dL (0.2-1.0); BLOOD UREA NITROGEN,BUN 22 mg/dL (7-18); CALCIUM 9.5 mg/dL (8.5-10.1); CARBON DIOXIDE,CO2 30 mmol/L (21-32); CHLORIDE,CL 103 mmol/L (98-107); CREATININE 1.2 mg/dL (0.70-1.30); GLUCOSE RANDOM 156 mg/dL (70-99); MAGNESIUM 1.7 mg/dL (1.8-2.4); POTASSIUM,K 3.7 mmol/L (3.5-5.1); PRO B-TYPE NATRIUR PEPT,BNPPRO 334 pg/mL (<=125); PROTEIN TOTAL,TP 7.1 g/dL (6.4-8.2); SODIUM,NA 142 mmol/L (136-145)
[2024-05-17 00:08] LABS: ANION GAP 12.7 mmol/L (5-15); ESTIMATED GFR 65 mL/min (>=60)
[2024-05-17 00:11] LABS: INR 1.2 (0.9-1.1); PROTHROMBIN TIME 12.6 SEC (9.6-12.0); PTT,PARTIAL THROMBOPLSTIN TIME 25.2 SEC (23.5-33.2)
[2024-05-17] MEDS: Alum Hydrox/Mag Hydrox/Simeth 30 ML, Lidocaine 2% 15 ML, Promethazine 12.5 MG PO ONE (00:34)
[2024-05-17 02:57] VITALS: BP 139/82; PULSE 61
== END 2024-05-17 02:53 | disposition home or self-care (01) ==
LOC: VM.ED 23:33
DX: R07.2 Precordial pain (principal); I25.10 Atherosclerotic heart disease of native coronary artery without angina pectoris; I25.2 Old myocardial infarction; I10 Essential (primary) hypertension; E78.00 Pure hypercholesterolemia, unspecified; E11.9 Type 2 diabetes mellitus without complications; Z91.048 Other nonmedicinal substance allergy status; Z79.82 Long term (current) use of aspirin; Z79.84 Long term (current) use of oral hypoglycemic drugs; Z79.899 Other long term (current) drug therapy
CPT/HCPCS: 36415; 71045; 80053; 83735; 83880; 84484; 85025; 85610; 85730; 93005; 93010; 99284; 99285; A9270-GY